=== PATIENT | female | born 1995 | race American Indian/Alaskan Native ===

== ENCOUNTER 2020-04-04 16:48 | Emergency (ER) | payer SELFPAY ==
[2020-04-04 16:55] VITALS: BP 145/59
--- NOTE | 2020-04-04 18:24 | Emergency Department Report ---
Chief Complaint: Neuro Symptoms/Deficit Stated Complaint: NUMBNESS/TINGLING ALL OVER Time Seen by Provider: 04/04/20 18:17 - HPI History of Present Illness: Patient is a 25-year-old female who presents emergency room with a brief episode of tingling all over her as soon as she took her tongue ring out. She states that it self resolved within a few seconds. She has no tingling or numbness currently. She denies any headache, vision changes, nausea, vomiting, diarrhea, fever, sore throat, tongue pain, drainage, bleeding, speech disturbance, gait disturbance. No past medical history. No allergies to medications. Last menstrual cycle last week. she denies any HI/SI/hallucinations. Vitals are stable On exam: Non toxic appearing, no acute distress atraumatic, normocephalic normal appearance of the eyes, PERRL, EOMI, no periorbital edema or ecchymosis moist mucus membranes, normal oropharynx, very small hole present to the tongue, there is no surrounding erythema, no drainage, no edema, airway is intact, no signs of infection, there is a small right sided nontender easily movable cervical lymphadenopathy regular heart rate and rhythm, no gallops, no rubs, no murmurs breath sounds are clear bilaterally, no w/r/r A&O x4, no focal neuro deficit, normal gait, 5 out of 5 strength in the bilateral upper extremities and lower extremities, cranial nerves II through XII intact skin is warm, dry, intact It appears patient most likely had a anxiety reaction after taking out her tongue ring She has no neurological deficits on exam She has no symptoms at all currently she states it only briefly lasted a few seconds after she removed her tongue ring She has no clinical signs of bacterial infection Patient will be given primary care follow-up Discussed strict return precautions Medical screening examination performed there is no threat to life or limb at this time - Exam Vital Signs: Vital Signs 04/04/20 16:54 Temperature 97.7 F Pulse Rate 93 H Respiratory 14 Rate Blood Pressure 145/59 O2 Sat by Pulse 97 Oximetry MSE screening note: Focused history and physical exam performed. Due to findings the following was ordered: ED Disposition for MSE Clinical Impression: Tingling, LAD (lymphadenopathy) Disposition: Z- MED SCREENING EXAM-LEFT Is pt being admited?: No Does the pt Need Aspirin: No Condition: Stable Instructions: Lymphadenopathy, Managing Anxiety, Adult Additional Instructions: Follow-up with your primary care doctor. Return to emergency room for new or worsening symptoms. Referrals: PETER URIBE MD [Staff Physician] - 2-3 Days [facility] [Provider Group] - 2-3 Days [facility], [LAB/CONTRACT] - 2-3 Days Time of Disposition: 18:24 Print Language: BURUNDI[place]
== END 2020-04-04 18:39 | disposition left against medical advice (07) ==
LOC: ED 16:48
DX: R20.0 Anesthesia of skin (principal); Z53.21 Procedure and treatment not carried out due to patient leaving prior to being seen by health care provider